=== PATIENT | male | born 1965 | race Caucasian/White ===

== ENCOUNTER → 2016-10-10 | Outpatient (CLI) | payer BC, OTHER ==
[2016-10-10 08:37] LABS: ALANINE AMINOTRANSFERASE 46 U/L (21-72); ALBUMIN 4.2 g/dL (3.5-5.0); ALKALINE PHOSPHATASE 42 U/L (38-126); ANION GAP 11 (5-19); ASPARTATE AMINO TRANSFERASE 28 U/L (17-59); BILIRUBIN,TOTAL 0.6 mg/dL (0.2-1.3); BLOOD UREA NITROGEN 25 mg/dL (7-20); CALCIUM 9.7 mg/dL (8.4-10.2); CARBON DIOXIDE 30 mmol/L (22-30); CHLORIDE 103 mmol/L (98-107); CHOLESTEROL 141.02 mg/dL (0-200); CREATININE RESULT 0.96 mg/dL (0.52-1.25); Direct HDL 41 mg/dL (>40); GLUCOSE 104 mg/dL (75-110); POTASSIUM 4.9 mmol/L (3.6-5.0); SODIUM 143.6 mmol/L (137-145); TOTAL PROTEIN 6.9 g/dL (6.3-8.2); TRIGLYCERIDES 102 mg/dL (<150)
[2016-10-10 08:48] LABS: DIRECT LDL 87 mg/dL (<100)
[2016-10-10 09:04] LABS: ANION GAP 11 (5-19); BLOOD UREA NITROGEN 25 mg/dL (7-20); CALCIUM 9.7 mg/dL (8.4-10.2); CARBON DIOXIDE 30 mmol/L (22-30); CHLORIDE 103 mmol/L (98-107); CREATININE RESULT 0.96 mg/dL (0.52-1.25); GLUCOSE 104 mg/dL (75-110); POTASSIUM 4.9 mmol/L (3.6-5.0); SODIUM 143.6 mmol/L (137-145)
[2016-10-10 09:05] LABS: ALANINE AMINOTRANSFERASE 46 U/L (21-72); ALBUMIN 4.2 g/dL (3.5-5.0); ALKALINE PHOSPHATASE 42 U/L (38-126); ASPARTATE AMINO TRANSFERASE 28 U/L (17-59); BILIRUBIN,TOTAL 0.6 mg/dL (0.2-1.3); CHOLESTEROL 141.02 mg/dL (0-200); DIRECT LDL 87 mg/dL (<100); Direct HDL 41 mg/dL (>40); TOTAL PROTEIN 6.9 g/dL (6.3-8.2); TRIGLYCERIDES 102 mg/dL (<150)
== END ==
LOC: OD 07:23
PROVIDERS: ATTEND Internal Medicine Cardiovascular Disease
DX: I10 Essential (primary) hypertension (principal); E55.9 Vitamin D deficiency, unspecified; Z12.5 Encounter for screening for malignant neoplasm of prostate; Z79.899 Other long term (current) drug therapy; E78.2 Mixed hyperlipidemia
CPT/HCPCS: 36415; 80048; 80053; 80061; 80076; 82652; 84153

== ENCOUNTER → 2016-11-19 | Outpatient (CLI) | payer BC, OTHER ==
[2016-11-19 10:16] LABS: ALANINE AMINOTRANSFERASE 36 U/L (21-72); ALBUMIN 4.4 g/dL (3.5-5.0); ALKALINE PHOSPHATASE 55 U/L (38-126); ASPARTATE AMINO TRANSFERASE 22 U/L (17-59); BILIRUBIN,TOTAL 0.5 mg/dL (0.2-1.3); CHOLESTEROL 127.33 mg/dL (0-200); CREATINE KINASE 79 U/L (55-170); Direct HDL 42 mg/dL (>40); TOTAL PROTEIN 6.8 g/dL (6.3-8.2); TRIGLYCERIDES 98 mg/dL (<150)
[2016-11-19 10:28] LABS: DIRECT LDL 68 mg/dL (<100)
== END ==
LOC: OD 08:35
PROVIDERS: ATTEND Internal Medicine Cardiovascular Disease
DX: R25.2 Cramp and spasm (principal); Z79.899 Other long term (current) drug therapy; E78.2 Mixed hyperlipidemia
CPT/HCPCS: 36415; 80061; 80076; 82550

== ENCOUNTER → 2017-04-13 | Outpatient (CLI) | payer BC, OTHER ==
[2017-04-13 09:34] LABS: ALANINE AMINOTRANSFERASE 42 U/L (21-72); ALKALINE PHOSPHATASE 45 U/L (38-126); ASPARTATE AMINO TRANSFERASE 18 U/L (17-59); BILIRUBIN,DIRECT 0.2 mg/dL (0.0-0.4); BILIRUBIN,TOTAL 0.7 mg/dL (0.2-1.3); CHOLESTEROL 163.68 mg/dL (0-200); Direct HDL 40 mg/dL (>40); TOTAL PROTEIN 6.5 g/dL (6.3-8.2); TRIGLYCERIDES 149 mg/dL (<150)
[2017-04-13 09:45] LABS: DIRECT LDL 105 mg/dL (<100)
== END ==
LOC: OD 08:14
PROVIDERS: ATTEND Internal Medicine Cardiovascular Disease
DX: E78.2 Mixed hyperlipidemia (principal); Z79.899 Other long term (current) drug therapy
CPT/HCPCS: 36415; 80061; 80076

== ENCOUNTER → 2017-10-11 | Outpatient (CLI) | payer BC, OTHER ==
[2017-10-11 10:00] LABS: ANION GAP 10 (5-19); BLOOD UREA NITROGEN 17 mg/dL (7-20); CALCIUM 9.6 mg/dL (8.4-10.2); CARBON DIOXIDE 27 mmol/L (22-30); CHLORIDE 106 mmol/L (98-107); CHOLESTEROL 145.08 mg/dL (0-200); CREATINE KINASE 141 U/L (55-170); GLUCOSE 111 mg/dL (75-110); POTASSIUM 4.2 mmol/L (3.6-5.0); SODIUM 143.1 mmol/L (137-145); TRIGLYCERIDES 195 mg/dL (<150)
[2017-10-11 10:10] LABS: DIRECT LDL 77 mg/dL (<100)
== END ==
LOC: OD 08:30
PROVIDERS: ATTEND Internal Medicine Cardiovascular Disease
DX: R25.2 Cramp and spasm (principal); I10 Essential (primary) hypertension
CPT/HCPCS: 36415; 80048; 80061; 82306; 82550

== ENCOUNTER 2018-01-17 02:45 | Emergency (ER) | payer BC, OTHER ==
[2018-01-17] MEDS ORDERED: ETOMIDATE INJ/PF 20 MG/10 ML SDV IV ONE ×2 (03:16→03:20)
[2018-01-17] MEDS ORDERED: KETAMINE HCL INJ 500 MG/10 ML VIAL IV ONE (03:17)
[2018-01-17] MEDS ORDERED: SUCCINYLCHOLINE CHLORIDE INJ 200 MG/10 ML VIAL IV ONE ×2 (03:17→03:46)
[2018-01-17] MEDS ORDERED: PROPOFOL 100 ML IV PRN (03:17)
[2018-01-17] MEDS ORDERED: LIDOCAINE 2% INJ-PF (20 MG/ML) 10 ML AMPUL NEB ONE (03:17)
[2018-01-17] MEDS ORDERED: KETAMINE HCL INJ 500 MG/10 ML VIAL ONE (03:19)
[2018-01-17] MEDS ORDERED: PROPOFOL 100 ML IV ONE (03:20)
--- NOTE | 2018-01-17 03:56 | ER Document Report ---
ED General - General Chief Complaint: Breathing Difficulty Stated Complaint: THROAT SWELLING Time Seen by Provider: 01/17/18 03:11 Notes: Patient is a 52-year-old male, past medical history cervical fusion through an anterior approach yesterday in [place], presents with increased swelling and difficulty swallowing and breathing over the past few hours. He has noticed some bleeding from his left neck surgical wound. He denies fevers, chest pain, numbness or tingling. TRAVEL OUTSIDE OF THE [place] IN LAST 30 DAYS: No - Related Data Allergies/Adverse Reactions: No Known Allergies Allergy (Verified 05/05/16 18:56) Past Medical History - General Information source: Patient - Social History Smoking Status: Unknown if Ever Smoked Family History: Reviewed & Not Pertinent - Past Medical History Cardiac Medical History: Reports: Hx Heart Attack, Hx Hypercholesterolemia, Hx Hypertension GI Medical History: Reports: Hx Gastroesophageal Reflux Disease Past Surgical History: Reports: Hx Cardiac Catheterization, Hx Cardiac Surgery - 4 stents placed, Hx Orthopedic Surgery - Immunizations Hx Diphtheria, Pertussis, Tetanus Vaccination: Yes Review of Systems - Review of Systems Notes: REVIEW OF SYSTEMS: CONSTITUTIONAL: -fevers, -chills EENT: -eye pain, +difficulty swallowing, -nasal congestion CARDIOVASCULAR: -chest pain, -syncope. RESPIRATORY: -cough, +SOB GASTROINTESTINAL: -abdominal pain, -nausea, -vomiting, -diarrhea GENITOURINARY: -dysuria, -hematuria MUSCULOSKELETAL: -back pain, +neck pain SKIN: -rash or skin lesions. HEMATOLOGIC: -easy bruising or bleeding. LYMPHATIC: -swollen, enlarged glands. NEUROLOGICAL: -altered mental status or loss of consciousness, -headache, - neurologic symptoms PSYCHIATRIC: -anxiety, -depression. ALL OTHER SYSTEMS REVIEWED AND NEGATIVE. Physical Exam - Vital signs Vitals: Pulse Resp BP Pulse Ox 114 H 24 H 148/97 H 95 01/17/18 02:50 01/17/18 02:50 01/17/18 02:50 01/17/18 02:50 - Notes Notes: PHYSICAL EXAMINATION: GENERAL: Well-appearing, well-nourished and in no acute distress. HEAD: Atraumatic, normocephalic. EYES: Pupils equal round and reactive to light, extraocular movements intact, sclera anicteric, conjunctiva are normal. ENT: nares patent, oropharynx clear without exudates. Moist mucous membranes. NECK: Moderate swelling and hematoma of anterior neck, worse on left. Left- sided surgical wound with oozing from the surgical site. LUNGS: Breath sounds clear to auscultation bilaterally and equal. No wheezes rales or rhonchi. HEART: Regular rate and rhythm without murmurs ABDOMEN: Soft, nontender, normoactive bowel sounds. No guarding, no rebound. No masses appreciated. EXTREMITIES: Normal range of motion, no pitting or edema. No cyanosis. NEUROLOGICAL: Cranial nerves grossly intact. Normal speech, normal gait. Normal sensory and motor exams. PSYCH: Normal mood, normal affect. SKIN: Warm, Dry, normal turgor, no rashes or lesions noted. Course - Re-evaluation Re-evalutation: Patient seen immediately on arrival due to concern about upper airway obstruction from expanding hematoma from his surgery yesterday. Decision was made to emergently intubate patient due to upper airway obstruction from the hematoma. and patient understood. Difficult intubation due to distorted anatomy from the hematoma, but 7.0 using glidescope successfully able to be inserted. 01/17/18 03:53 Spoke to [facility] to arrange transfer back to his neurosurgeon for further evaluation and treatment. Awaiting callback. 01/17/18 04:[address] Kevin and he has accepted patient under Dr. Mclean' s service. Patient sedated with propofol drip. 01/17/18 05:26 Air transport in ED. Pt with expanding hematoma, but ETT in place and patient sedated. Stable for transfer. - Vital Signs Vital signs: Temp Pulse Resp BP Pulse Ox 97.8 F 114 H 16 107/78 96 01/17/18 02:54 01/17/18 02:50 01/17/18 04:51 01/17/18 04:51 01/17/18 04:51 - Diagnostic Test Radiology reviewed: Image reviewed, Reports reviewed Radiology results interpreted by me: CXR: Life support tubes in the right spots Procedures - Intubation Orotracheal Time of Intubation: 03:40 Airway evaluation: Poss. upper airway obst. Mallampati Classification: Class 3 Medications: Succinylcholine, Ketamine Intubation method: Orotracheal Blade type: Manjit Blade size: 4 Equipment used: Glidescope ETT size: 7.0 ETT secured at: Teeth ETT secured at (cm): 25 Breath Sounds after Intubation: Equal End tidal CO2 confirmed: Yes Ventilator settings: AC Tidal volume: 500 FiO2: 50 Respirations: 12 PEEP: 5 Post Intubation Xray: No Critical Care Note - Critical Care Note Total time excluding time spent on procedures (mins): 45 Discharge - Discharge Clinical Impression: Compromised airway Hematoma of neck Qualifiers: Encounter type: initial encounter Qualified Code(s): S10.93XA - Contusion of unspecified part of neck, initial encounter Condition: Stable Disposition: [facility] Referrals: DEBORAH LITTLEJOHN MD [Primary Care Provider] - Follow up as needed
[2018-01-17] MEDS ORDERED: PROPOFOL INJ 200 MG/20 ML VIAL IV ONE ×2 (04:08→04:09)
--- NOTE | 2018-01-17 04:11 | RADIOLOGY REPORT (SQ) ---
EXAM DESCRIPTION: CHEST SINGLE VIEW CLINICAL HISTORY: intubated COMPARISON: None. FINDINGS: Single frontal view of the chest. Endotracheal tube with tip 6 cm above the domi. NG tube with tip below the diaphragm. Leads overlie the chest. Low lung volumes. Streaky left basilar opacities. No pneumothorax, large effusion, or lobar consolidation. No displaced rib fractures identified. Upper abdominal soft tissues are unremarkable. IMPRESSION: 1. Endotracheal tube and NG tube in appropriate radiographic position. Low lung volumes. 2. Minimal streaky left basilar opacities likely represent subsegmental atelectasis.
[2018-01-17 05:43] VITALS: BP 107/76
[2018-01-17] MEDS ORDERED: ROCURONIUM BROMIDE INJ 50 MG/5 ML VIAL IV ONE (09:31)
[2018-01-17] MEDS ORDERED: SUCCINYLCHOLINE CHLORIDE INJ 200 MG/10 ML VIAL ONE (09:31)
== END 2018-01-17 05:35 | disposition short-term general hospital (02) ==
LOC: ER 02:45
PROC: 0BH17EZ Insertion of Endotracheal Airway into Trachea, Via Natural or Artificial Opening (ICD-10-PCS; principal; 2018-01-17)
DX: S10.93XA Contusion of unspecified part of neck, initial encounter (principal); L76.32 Postprocedural hematoma of skin and subcutaneous tissue following other procedure; R06.00 Dyspnea, unspecified; Y83.4 Other reconstructive surgery as the cause of abnormal reaction of the patient, or of later complication, without mention of misadventure at the time of the procedure; K21.9 Gastro-esophageal reflux disease without esophagitis; I10 Essential (primary) hypertension; E78.00 Pure hypercholesterolemia, unspecified; Z98.1 Arthrodesis status; I25.2 Old myocardial infarction
CPT/HCPCS: 99291; 51702; 71045; 31500; J3490; J0330

== ENCOUNTER → 2018-01-29 | Outpatient (CLI) | payer BC, OTHER ==
[2018-01-29 10:17] LABS: CHOLESTEROL 138.05 mg/dL (0-200); TRIGLYCERIDES 113 mg/dL (<150)
[2018-01-29 10:29] LABS: DIRECT LDL 72 mg/dL (<100)
== END ==
LOC: OD 09:09
PROVIDERS: ATTEND Internal Medicine Cardiovascular Disease
DX: E78.2 Mixed hyperlipidemia (principal); E55.9 Vitamin D deficiency, unspecified
CPT/HCPCS: 36415; 80061; 82306

== ENCOUNTER → 2018-04-25 | Outpatient (CLI) | payer BC, OTHER ==
--- NOTE | 2018-04-25 11:26 | RADIOLOGY REPORT (SQ) ---
EXAM DESCRIPTION: BARIUM SWALLOW ESOPHAGUS COMPLETED DATE/TIME: 04/25/2018 8:19 am REASON FOR STUDY: DYSPHAGIA, PHARYNGOESOPHAGEAL PHASE (R13.14) R13.14 DYSPHAGIA, PHARYNGOESOPHAGEAL PHASE COMPARISON: None. TECHNIQUE: Under fluoroscopic guidance, patient ingested effervescent granules followed by thick and thin barium. Fluoroscopic spot images and routine radiographic images acquired and stored on PACS. 12 MM BARIUM TABLET GIVEN: The patient swallowed a 12 mm barium tablet which passed easily through th e esophagus into the stomach without delay. LIMITATIONS: None. FLUOROSCOPY TIME: FLUORO TIME: 1.9 minutes 7 images saved to PACS. FINDINGS: NEUROMUSCULAR COORDINATION OF SWALLOW: Normal. No aspiration. ESOPHAGEAL MOTILITY: Normal peristalsis. No esophageal spasm. ESOPHAGEAL MUCOSA: Normal mucosa without masses or ulceration. GASTRO-ESOPHAGEAL JUNCTION: Small hiatal hernia present. No gastroesophageal reflux. NON-GI TRACT STRUCTURES: No significant finding. OTHER: No other significant finding. IMPRESSION: SMALL HIATAL HERNIA. OTHERWISE UNREMARKABLE STUDY. RECOMMENDATION: None COMMENT: Quality ID [id number]: Final reports for procedures using fluoroscopy that document radiation exp osure indices, or exposure time and number of fluorographic images (if radiation exposure indices are not available) TECHNICAL DOCUMENTATION: JOB ID: [id number] [employer]- All Rights Reserved Reading location - IP/workstation name: [email or web address] [id number]
== END ==
LOC: RAD 07:38
PROVIDERS: ATTEND Family Medicine
DX: R13.14 Dysphagia, pharyngoesophageal phase (principal)
CPT/HCPCS: 74220

== ENCOUNTER → 2018-08-28 | Outpatient (CLI) | payer BC, OTHER ==
[2018-08-28 10:05] LABS: HEMATOCRIT 45.6 % (37.9-51.0); HEMOGLOBIN 16.3 g/dL (13.5-17.0); MEAN CORPUSCULAR HEMOGLOBIN 32.5 pg (27.0-33.4); MEAN CORPUSCULAR HGB CONC 35.8 g/dL (32.0-36.0); MEAN CORPUSCULAR VOLUME 91 fl (80-97); PLATELET COUNT 193 10^3/uL (150-450); RED BLOOD COUNT 5.02 10^6/uL (4.35-5.55); RED CELL DISTRIBUTION WIDTH 12.8 % (11.5-14.0); WHITE BLOOD COUNT 7.2 10^3/uL (4.0-10.5)
[2018-08-28 10:20] LABS: INTERNATIONAL RATION (INR) 0.92; PROTHROMBIN TIME 12.8 SEC (11.4-15.4)
[2018-08-28 10:29] LABS: PARTIAL THROMBOPLASTIN TIME 35.6 SEC (23.5-35.8)
[2018-08-28 10:35] LABS: ANION GAP 11 (5-19); BLOOD UREA NITROGEN 19 mg/dL (7-20); CALCIUM 9.6 mg/dL (8.4-10.2); CARBON DIOXIDE 26 mmol/L (22-30); CHLORIDE 107 mmol/L (98-107); GLUCOSE 134 mg/dL (75-110); POTASSIUM 4.4 mmol/L (3.6-5.0); SODIUM 143.9 mmol/L (137-145)
== END ==
LOC: OD 09:18
PROVIDERS: ATTEND Internal Medicine Cardiovascular Disease
DX: Z01.810 Encounter for preprocedural cardiovascular examination (principal); R07.9 Chest pain, unspecified; Z79.01 Long term (current) use of anticoagulants; R07.89 Other chest pain
CPT/HCPCS: 36415; 80048; 85027; 85610; 85730

== ENCOUNTER → 2018-10-15 | Outpatient (CLI) | payer BC, OTHER ==
[2018-10-15 09:36] LABS: HEMATOCRIT 47.2 % (37.9-51.0); HEMOGLOBIN 16.4 g/dL (13.5-17.0); MEAN CORPUSCULAR HEMOGLOBIN 31.6 pg (27.0-33.4); MEAN CORPUSCULAR HGB CONC 34.8 g/dL (32.0-36.0); MEAN CORPUSCULAR VOLUME 91 fl (80-97); PLATELET COUNT 203 10^3/uL (150-450); RED CELL DISTRIBUTION WIDTH 12.6 % (11.5-14.0)
[2018-10-15 09:59] LABS: ALANINE AMINOTRANSFERASE 46 U/L (21-72); ALBUMIN 4.2 g/dL (3.5-5.0); ALKALINE PHOSPHATASE 59 U/L (38-126); ASPARTATE AMINO TRANSFERASE 27 U/L (17-59); BILIRUBIN,DIRECT 0.3 mg/dL (0.0-0.4); BILIRUBIN,TOTAL 0.8 mg/dL (0.2-1.3); CHOLESTEROL 118.71 mg/dL (0-200); TOTAL PROTEIN 6.6 g/dL (6.3-8.2); TRIGLYCERIDES 186 mg/dL (<150)
[2018-10-15 10:10] LABS: DIRECT LDL 66 mg/dL (<100)
[2018-10-15 10:16] LABS: VLDL CHOLESTEROL 37.2 mg/dL (10-31)
== END ==
LOC: OD 08:33
PROVIDERS: ATTEND Internal Medicine Cardiovascular Disease
DX: I25.10 Atherosclerotic heart disease of native coronary artery without angina pectoris (principal); Z79.899 Other long term (current) drug therapy
CPT/HCPCS: 36415; 80061; 80076; 83735; 85027

== ENCOUNTER → 2019-05-08 | Outpatient (CLI) | payer BC, OTHER ==
[2019-05-08 08:31] LABS: CHOLESTEROL 99.74 mg/dL (0-200); TRIGLYCERIDES 84 mg/dL (<150)
[2019-05-08 08:33] LABS: ALBUMIN 4.1 g/dL (3.5-5.0); ALKALINE PHOSPHATASE 65 U/L (38-126); ANION GAP 10 (5-19); ASPARTATE AMINO TRANSFERASE 34 U/L (17-59); BILIRUBIN,DIRECT 0.2 mg/dL (0.0-0.4); BILIRUBIN,TOTAL 0.4 mg/dL (0.2-1.3); BLOOD UREA NITROGEN 14 mg/dL (7-20); CALCIUM 9.2 mg/dL (8.4-10.2); CARBON DIOXIDE 27 mmol/L (22-30); CHLORIDE 104 mmol/L (98-107); GLUCOSE 110 mg/dL (75-110); POTASSIUM 4.3 mmol/L (3.6-5.0); TOTAL PROTEIN 6.5 g/dL (6.3-8.2)
[2019-05-08 08:41] LABS: DIRECT LDL 57 mg/dL (<100)
== END ==
LOC: OD 07:32
PROVIDERS: ATTEND Physician Assistant
DX: E78.2 Mixed hyperlipidemia (principal); Z79.899 Other long term (current) drug therapy; I10 Essential (primary) hypertension
CPT/HCPCS: 36415; 80048; 80061; 80076

== ENCOUNTER 2019-10-29 12:03 | Emergency (ER) | payer BC, OTHER ==
[2019-10-29] MEDS ORDERED: ASPIRIN 81 MG TABLET, CHEWABLE PO ONE (13:01)
--- NOTE | 2019-10-29 13:01 | ER Document Report ---
ED Medical Screen (RME) - General Chief Complaint: Dizziness Stated Complaint: DIZZINESS Time Seen by Provider: 10/29/19 12:58 Primary Care Provider: ZAYDA CRESPO PA-C [Primary Care Provider] - Follow up as needed Mode of Arrival: Ambulatory Information source: Patient Notes: 54-year-old male presented to ED for complaint of dizziness lightheadedness and blood pressure that is elevated for him. He states he did call his industrial ecologist who told him that he should come to the emergency room and get checked out. He states he had some mild shortness of breath but he denies any chest pain said the day before yesterday he had some back pain. He states he had a recent neck surgery and is gone to physical therapy because of problems in his back from the neck surgery. He states they did suction cup therapy to his entire back and has little small bruises on his back he denies any chest pain or palpitation. I have greeted and performed a rapid initial assessment of this patient. A comprehensive ED assessment and evaluation of the patient, analysis of test results and completion of medical decision making process will be conducted by an additional ED providers. TRAVEL OUTSIDE OF THE [place] IN LAST 30 DAYS: No - Related Data Allergies/Adverse Reactions: No Known Allergies Allergy (Verified 05/05/16 18:56) Past Medical History - Past Medical History Cardiac Medical History: Reports: Hx Heart Attack, Hx Hypercholesterolemia, Hx Hypertension Renal/ Medical History: Denies: Hx Peritoneal Dialysis GI Medical History: Reports: Hx Gastroesophageal Reflux Disease Past Surgical History: Reports: Hx Cardiac Catheterization, Hx Cardiac Surgery - 4 stents placed, Hx Orthopedic Surgery - Immunizations Hx Diphtheria, Pertussis, Tetanus Vaccination: Yes Physical Exam - Vital signs Vitals: Temp Pulse Resp BP Pulse Ox 97.7 F 57 L 16 125/75 95 10/29/19 12:19 10/29/19 12:19 10/29/19 12:10/29/19 12:19 10/29/19 12:19 Course - Vital Signs Vital signs: Temp Pulse Resp BP Pulse Ox 97.7 F 57 L 16 125/75 95 10/29/19 12:19 10/29/19 12:19 10/29/19 12:19 10/29/19 12:19 10/29/19 12:19 Doctor's Discharge - Discharge Referrals: CRESPO,ZAYDA P, PA-C [Primary Care Provider] - Follow up as needed
--- NOTE | 2019-10-29 13:48 | RADIOLOGY REPORT (SQ) ---
EXAM DESCRIPTION: CHEST 2 VIEWS COMPLETED DATE/TIME: 10/29/2019 1:32 pm REASON FOR STUDY: Short of breath dizziness COMPARISON: 2008 TECHNIQUE: Frontal and lateral radiographic views of the chest acquired. NUMBER OF VIEWS: Two view. LIMITATIONS: None. FINDINGS: LUNGS AND PLEURA: No opacities, masses or pneumothorax. No pleural effusion. MEDIASTINUM AND HILAR STRUCTURES: No masses or contour abnormalities. HEART AND VASCULAR STRUCTURES: Heart normal size. No evidence for failure. BONES: No acute findings. HARDWARE: None in the chest. OTHER: No other significant finding. IMPRESSION: NO SIGNIFICANT RADIOGRAPHIC FINDING IN THE CHEST. TECHNICAL DOCUMENTATION: JOB ID: [id number] [employer]- All Rights Reserved Reading location - IP/workstation name: [email or web address]
[2019-10-29 13:51] LABS: ABSOLUTE EOSINOPHILS # (AUTO) 0.1 10^3/uL (0.0-0.6); ABSOLUTE LYMPHOCYTES (AUTO) 1.9 10^3/uL (0.5-4.7); ABSOLUTE MONOCYTES (AUTO) 0.7 10^3/uL (0.1-1.4); BASOPHILS % (AUTO) 0.6 % (0-2); EOSINOPHILS % (AUTO) 1.6 % (0-6); HEMATOCRIT 47.3 % (37.9-51.0); HEMOGLOBIN 16.5 g/dL (13.5-17.0); LYMPHOCYTES % (AUTO) 28.4 % (13-45); MEAN CORPUSCULAR HEMOGLOBIN 32.2 pg (27.0-33.4); MEAN CORPUSCULAR HGB CONC 34.9 g/dL (32.0-36.0); MEAN CORPUSCULAR VOLUME 92 fl (80-97); MONOCYTES % (AUTO) 10.3 % (3-13); PLATELET COUNT 186 10^3/uL (150-450); RED BLOOD COUNT 5.12 10^6/uL (4.35-5.55); SEGMENTED NEUTROPHILS % (AUTO) 59.1 % (42-78); TOTAL CELLS COUNTED % (AUTO) 100 %; WHITE BLOOD COUNT 6.7 10^3/uL (4.0-10.5)
[2019-10-29 14:12] LABS: ALBUMIN 4.6 g/dL (3.5-5.0); ALKALINE PHOSPHATASE 58 U/L (38-126); ANION GAP 7 (5-19); ASPARTATE AMINO TRANSFERASE 33 U/L (17-59); BILIRUBIN,TOTAL 0.7 mg/dL (0.2-1.3); BLOOD UREA NITROGEN 14 mg/dL (7-20); CARBON DIOXIDE 29 mmol/L (22-30); CHLORIDE 104 mmol/L (98-107); GLUCOSE 96 mg/dL (75-110); POTASSIUM 4.7 mmol/L (3.6-5.0); TOTAL PROTEIN 7.4 g/dL (6.3-8.2)
[2019-10-29] MEDS ORDERED: ASPIRIN 81 MG TABLET, CHEWABLE ONE (15:39)
--- NOTE | 2019-10-29 19:10 | RADIOLOGY REPORT (SQ) ---
EXAM DESCRIPTION: CT HEAD WITHOUT COMPLETED DATE/TIME: 10/29/2019 6:59 pm REASON FOR STUDY: [place], vertigo, HTN COMPARISON: None. TECHNIQUE: Axial images acquired through the brain without intravenous contrast. Images reviewed wi th bone, brain and subdural windows. Additional sagittal and coronal reconstructions were generated. Images stored on PACS. All CT scanners at this facility use dose modulation, iterative reconstruction, and/or weight based d osing when appropriate to reduce radiation dose to as low as reasonably achievable (ALARA). [facility]: Dose Right [facility]: CareDose [facility]: Dose Right [facility]: Teradose 4D [facility]: Smart [employer] RADIATION DOSE: CT Rad equipment meets quality standard of care and radiation dose reduction techniq ues were employed. CTDIvol: 53.2 mGy. DLP: 1177 mGy-cm. mGy. LIMITATIONS: None. FINDINGS: VENTRICLES: Normal size and contour. CEREBRUM: No masses. No hemorrhage. No midline shift. No evidence for acute infarction. Normal gra y/white matter differentiation. No areas of low density in the white matter. CEREBELLUM: No masses. No hemorrhage. No alteration of density. No evidence for acute infarction. EXTRAAXIAL SPACES: No fluid collections. No masses. ORBITS AND GLOBE: No intra- or extraconal masses. Normal contour of globe without masses. CALVARIUM: No fracture. PARANASAL SINUSES: No fluid or mucosal thickening. SOFT TISSUES: No mass or hematoma. OTHER: No other significant finding. IMPRESSION: NORMAL BRAIN CT WITHOUT CONTRAST. EVIDENCE OF ACUTE STROKE: NO. COMMENT: Quality ID # [id number]: Final reports with documentation of one or more dose reduction techniques (e.g., Automated exposure control, adjustment of the mA and/or kV according to patient size, use of iterative reconstruction technique) TECHNICAL DOCUMENTATION: JOB ID: [id number] [employer]- All Rights Reserved Reading location - IP/workstation name: [email or web address]
[2019-10-29] MEDS ORDERED: MECLIZINE HCL 25 MG TABLET PO ONE (19:50)
--- NOTE | 2019-10-29 19:56 | ER Document Report ---
ED General - General Chief Complaint: Dizziness Stated Complaint: DIZZINESS Time Seen by Provider: 10/29/19 12:58 Primary Care Provider: ZAYDA CRESPO PA-C [PHYSICIAN MD ALLERGY IMMUNOLOGY] - Follow up as needed Mode of Arrival: Ambulatory TRAVEL OUTSIDE OF THE [place] IN LAST 30 DAYS: No - HPI Notes: Mr. Durham is a 54-year-old male presenting with sudden onset of vertigo this afternoon. Slight dull headache. No fever. Denies any head trauma. Symptoms are episodic lasting a few seconds at a time and aggravated by change in position or turning head. He has a history of some chronic tinnitus. No focal motor or sensory deficit. No impairment of speech. Patient also has a history of hypertension and reports his blood pressure was a little higher than usual earlier today measuring around 140/90. Prior history is remarkable for CAD with previous stent placement several years ago. Patient has history of hypertension. He is never had a stroke or TIA. He is not diabetic. He is a non-smoker. He drinks 2 beers per day. 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 He had surgery on his neck for cervical disc disease several months ago. He is continued to have a lot of ongoing musculoskeletal discomfort in his neck and shoulders and is receiving physical therapy. - Related Data Allergies/Adverse Reactions: No Known Allergies Allergy (Verified 10/29/19 16:08) Home Medications: Metoprolol. Cozaar. Lipitor. 81mg aspirin Past Medical History - General Information source: Patient - Social History Smoking Status: Never Smoker Family History: Reviewed & Not Pertinent Patient has suicidal ideation: No Patient has homicidal ideation: No - Past Medical History Cardiac Medical History: Reports: Hx Heart Attack, Hx Hypercholesterolemia, Hx Hypertension Renal/ Medical History: Denies: Hx Peritoneal Dialysis GI Medical History: Reports: Hx Gastroesophageal Reflux Disease Musculoskeletal Medical History: Reports Hx Arthritis - back Past Surgical History: Reports: Hx Cardiac Catheterization, Hx Cardiac Surgery - 4 stents placed, Hx Orthopedic Surgery - neck bilat knee, bilat shouler, bilat elbow - Immunizations Hx Diphtheria, Pertussis, Tetanus Vaccination: Yes Review of Systems - Review of Systems Notes: Constitutional: Negative for fever. HENT: Negative for sore throat. Eyes: Negative for visual changes. Cardiovascular: Negative for chest pain. Respiratory: Negative for shortness of breath. Gastrointestinal: Negative for abdominal pain, vomiting or diarrhea. Genitourinary: Negative for dysuria. Musculoskeletal: Negative for back pain. Skin: Negative for rash. Neurological: As per HPI. 10 point ROS negative except as marked above and in HPI. Physical Exam - Vital signs Vitals: Temp Pulse Resp BP Pulse Ox 97.7 F 57 L 16 125/75 95 10/29/19 12:19 10/29/19 12:19 10/29/19 12:10/29/19 12:10/29/19 12:19 - Notes Notes: GENERAL: Well-developed well-nourished appearing mildly uncomfortable. SKIN: Good turgor no rashes. HEAD: Normocephalic atraumatic. EYES: Mild horizontal nystagmus on lateral gaze to the right. EOMI. Conjunctivae and sclerae clear. EARS: CANALS AND TMS CLEAR. NOSE: CLEAR. MOUTH: Moist mucosa. Good dentition. No stridor or edema. No drooling. NECK: Supple. No masses or thyromegaly. No adenopathy. Carotids 2+ without bruits. No JVD. BACK: Symmetrical without tenderness. CHEST: Respirations unlabored. Breath sounds clear and symmetrical. HEART: Regular rhythm. No murmur gallop or rub. ABDOMEN: Soft nontender without masses, organomegaly or rebound. Bowel sounds normally active. No bruits. GENITALIA: Deferred. EXTREMITIES: No edema. No calf tenderness. Cap refill less than 1.5 seconds. Dorsalis pedis and posterior tibial pulses 3+ and symmetrical. NEUROLOGICAL: GCS 15. Alert and oriented x3. Normal gait. Fluent speech. Cranial nerves II through XII intact. Sensorimotor and cerebellar normal. Normal tone. PSYCHIATRIC: Appropriate affect. Course - Re-evaluation Re-evalutation: 10/29/19 20:[address] was normal. Blood pressure is now within normal range without any specific intervention. His troponin is normal. I think this man has a peripheral vertigo and I talked with him about this at some length. I have given him some meclizine here and he is symptomatically improved. Very stable for outpatient management. - Vital Signs Vital signs: Temp Pulse Resp BP Pulse Ox 97.7 F 57 L 18 127/83 H 99 10/29/19 12:19 10/29/19 12:19 10/29/19 19:03 10/29/19 19:03 10/29/19 19:03 - Laboratory Result Diagrams: 10/29/19 13:20 10/29/19 13:20 - Diagnostic Test Radiology reviewed: Reports reviewed - Normal head CT noncontrast per radiologist Discharge - Discharge Clinical Impression: Vertigo Condition: Stable Disposition: HOME, SELF-CARE Instructions: Dizziness ([facility]), Vertigo ([facility]), Meclizine ([facility]) Additional Instructions: Return here as needed for new or worsening symptoms: Pain that is worsening or unimproved Uncontrolled vomiting High fever or shaking chills Overall worsening Prescriptions: Meclizine HCl [Antivert 25 mg Tablet] 25 mg PO TID PRN #21 tablet PRN Reason: Referrals: ZAYDA CRESPO PA-C [PHYSICIAN MD ALLERGY IMMUNOLOGY] - Follow up as needed
[2019-10-29 20:34] VITALS: BP 117/79
--- NOTE | 2019-10-30 13:02 | EKG REPORT ---
SEVERITY:- NORMAL ECG - SINUS RHYTHM : Confirmed by: Vickie Monte 30-Oct-2019 13:01:13
== END 2019-10-29 20:38 | disposition home or self-care (01) ==
LOC: ER 12:03
DX: R42 Dizziness and giddiness (principal); R51 Headache; I10 Essential (primary) hypertension; E78.00 Pure hypercholesterolemia, unspecified; I25.2 Old myocardial infarction
CPT/HCPCS: 36415; 70450; 71046; 80053; 84484; 85025; 93005; 93010; 99284

== ENCOUNTER → 2019-11-09 | Outpatient (CLI) | payer BC, OTHER ==
[2019-11-09 10:42] LABS: ALBUMIN 4.3 g/dL (3.5-5.0); ALKALINE PHOSPHATASE 67 U/L (38-126); ANION GAP 9 (5-19); ASPARTATE AMINO TRANSFERASE 32 U/L (17-59); BILIRUBIN,DIRECT 0.2 mg/dL (0.0-0.4); BILIRUBIN,TOTAL 0.5 mg/dL (0.2-1.3); BLOOD UREA NITROGEN 21 mg/dL (7-20); CALCIUM 9.6 mg/dL (8.4-10.2); CARBON DIOXIDE 29 mmol/L (22-30); CHLORIDE 103 mmol/L (98-107); CHOLESTEROL 111.17 mg/dL (0-200); GLUCOSE 106 mg/dL (75-110); POTASSIUM 4.6 mmol/L (3.6-5.0); TOTAL PROTEIN 7.3 g/dL (6.3-8.2); TRIGLYCERIDES 162 mg/dL (<150)
[2019-11-09 10:52] LABS: DIRECT LDL 58 mg/dL (<100)
[2019-11-09 10:54] LABS: VLDL CHOLESTEROL 32.4 mg/dL (10-31)
== END ==
LOC: OD 09:42
PROVIDERS: ATTEND Internal Medicine Cardiovascular Disease
DX: E78.2 Mixed hyperlipidemia (principal); I10 Essential (primary) hypertension; Z79.899 Other long term (current) drug therapy
CPT/HCPCS: 36415; 80048; 80061; 80076

== ENCOUNTER → 2020-02-09 | Outpatient (CLI) | payer BC, OTHER ==
[2020-02-09 10:54] LABS: ALBUMIN 4.5 g/dL (3.5-5.0); ALKALINE PHOSPHATASE 69 U/L (38-126); ANION GAP 11 (5-19); ASPARTATE AMINO TRANSFERASE 36 U/L (17-59); BILIRUBIN,TOTAL 0.7 mg/dL (0.2-1.3); BLOOD UREA NITROGEN 18 mg/dL (7-20); CALCIUM 9.4 mg/dL (8.4-10.2); CARBON DIOXIDE 24 mmol/L (22-30); CHLORIDE 103 mmol/L (98-107); GLUCOSE 107 mg/dL (75-110); POTASSIUM 4.4 mmol/L (3.6-5.0); TOTAL PROTEIN 7.2 g/dL (6.3-8.2)
== END ==
LOC: OD 09:09
PROVIDERS: ATTEND Physician Assistant
DX: E78.2 Mixed hyperlipidemia (principal); I10 Essential (primary) hypertension; E55.9 Vitamin D deficiency, unspecified; Z79.899 Other long term (current) drug therapy; I25.10 Atherosclerotic heart disease of native coronary artery without angina pectoris; R00.2 Palpitations; R94.5 Abnormal results of liver function studies
CPT/HCPCS: 36415; 80048; 80076; 82172; 82306; 83735

== ENCOUNTER → 2020-02-15 | Outpatient (CLI) | payer BC, OTHER ==
[2020-02-15 10:15] LABS: CHOLESTEROL 101.22 mg/dL (0-200); TRIGLYCERIDES 96 mg/dL (<150)
[2020-02-15 10:26] LABS: DIRECT LDL 44 mg/dL (<100)
== END ==
LOC: OD 08:41
PROVIDERS: ATTEND Physician Assistant
DX: E78.2 Mixed hyperlipidemia (principal); I10 Essential (primary) hypertension; E55.9 Vitamin D deficiency, unspecified; Z79.899 Other long term (current) drug therapy
CPT/HCPCS: 36415; 80061

== ENCOUNTER → 2020-06-08 | Outpatient (CLI) | payer BC, OTHER ==
[2020-06-08 10:12] LABS: ALBUMIN 4.3 g/dL (3.5-5.0); ALKALINE PHOSPHATASE 60 U/L (38-126); ANION GAP 8 (5-19); ASPARTATE AMINO TRANSFERASE 31 U/L (17-59); BILIRUBIN,DIRECT 0.2 mg/dL (0.0-0.4); BILIRUBIN,TOTAL 1.1 mg/dL (0.2-1.3); BLOOD UREA NITROGEN 18 mg/dL (7-20); CALCIUM 9.6 mg/dL (8.4-10.2); CARBON DIOXIDE 27 mmol/L (22-30); CHLORIDE 104 mmol/L (98-107); GLUCOSE 124 mg/dL (75-110); POTASSIUM 4.5 mmol/L (3.6-5.0); TOTAL PROTEIN 6.6 g/dL (6.3-8.2)
[2020-06-08 13:23] LABS: CHOLESTEROL 97.91 mg/dL (0-200); TRIGLYCERIDES 117 mg/dL (<150)
[2020-06-08 13:33] LABS: DIRECT LDL 43 mg/dL (<100)
== END ==
LOC: OD 09:13
PROVIDERS: ATTEND Internal Medicine Cardiovascular Disease
DX: E78.2 Mixed hyperlipidemia (principal); R94.5 Abnormal results of liver function studies; R73.01 Impaired fasting glucose; I10 Essential (primary) hypertension; Z79.899 Other long term (current) drug therapy
CPT/HCPCS: 36415; 80048; 80061; 80076; 83525